=== PATIENT | male | born 1965 | race Hispanic/Latino ===

== ENCOUNTER → 2018-01-26 | Outpatient (CLI) | payer OTHER ==
--- NOTE | 2018-01-26 10:25 | Diagnostic Imaging Report ---
EXAMINATION: MRI of the lumbar spine without contrast HISTORY: Intractable low back pain for the last 2 weeks COMPARISON: None. TECHNIQUE: Sagittal T1, T2, STIR; axial T2 and proton density. FINDINGS: It is assumed that there are 5 lumbar vertebrae. Curvature/Alignment: Normal lordosis. Vertebrae: No evidence of recent fracture, infection, or neoplasm. Minimal Modic type I endplate degenerative changes on the right side of the inferior endplate of L2. Conus: Normal, terminating at L2 Cauda equina: Unremarkable. Lower thoracic: Unremarkable. Paraspinal soft tissues: Unremarkable. Degenerative changes: L1-L2: Unremarkable. L2-L3: Mild symmetric disc bulge without significant canal or foraminal stenoses L3-L4: Minimal symmetric disc bulge without canal or foraminal stenoses. L4-L5: Mild asymmetric to the right disc bulge and mild facet arthrosis, with partial effacement of the right lateral recess, no evidence of nerve root compression. L5-S1: Minimal symmetric disc pole which and mild bilateral facet arthrosis. No significant canal or foraminal stenosis. Sacroiliac joints: Unremarkable. IMPRESSION: 1. Mild degenerative narrowing of the right lateral recess at L4-5 without evidence of nerve root compression. 2. Minimal degenerative changes in the remaining levels without spinal canal or foraminal stenosis. Signed by: Dr. Carol Landrum M.D. on 01/26/2018 10:21 AM
== END ==
LOC: MRI 08:38
PROVIDERS: ATTEND Emergency Medicine
DX: M54.5 Low back pain (principal); M54.16 Radiculopathy, lumbar region
CPT/HCPCS: 72148